=== PATIENT | male | born 1960 | race Caucasian/White ===

== ENCOUNTER 2025-04-26 06:29 | Day surgery (SDC) | payer MEDICARE, OTHER, SELFPAY | END 2025-04-26 12:47 | disposition home or self-care (01) | LOC: GI 06:29 | PROVIDERS: ATTENDING PHYSICIAN Internal Medicine | DX: Z12.11 Encounter for screening for malignant neoplasm of colon (principal); R19.5 Other fecal abnormalities; K57.30 Diverticulosis of large intestine without perforation or abscess without bleeding; D12.0 Benign neoplasm of cecum; D12.2 Benign neoplasm of ascending colon | CPT/HCPCS: 45385; 45380; 88305 ==